=== PATIENT | female | born 1960 | race Caucasian/White ===

== ENCOUNTER → 2022-05-23 08:39 | Outpatient (CLI) | payer OTHER, SELFPAY ==
--- NOTE | ~2022-05-23 | MR_ITS ---
EXAMINATION: MR pelvis wo con DATE: 05/23/2022 10:07 INDICATION: Bilateral hip pain. TECHNIQUE: Magnetic resonance imaging (MRI) of the pelvis was performed without intravenous contrast. COMPARISON: None. FINDINGS: There is lumbar levocurvature and mild spondylosis. No fracture. There is mild osteoarthritis of the hips. The hamstring origins are normal. The iliopsoas tendons are normal. There is mild right gluteus minimus tendinopathy. There is a partial tear of left gluteus minimus tendon. The gluteus medius ten dons are normal. There is moderate bilateral trochanteric bursitis. There is mild fatty atrophy of th e gluteus minimus muscle bellies bilaterally. IMPRESSION: 1. Mild osteoarthritis of the hips. 2. Partial tear of left gluteus minimus tendon. 3. Moderate bilateral trochanteric bursitis. Reviewed, dictated and finalized at location A.
== END ==
PROVIDERS: PCP Family Medicine; Visit Provider Orthopaedic Surgery
DX: M25.551 Pain in right hip (principal); M25.552 Pain in left hip; M16.0 Bilateral primary osteoarthritis of hip; S76.012A Strain of muscle, fascia and tendon of left hip, initial encounter; M71.552 Other bursitis, not elsewhere classified, left hip; M71.551 Other bursitis, not elsewhere classified, right hip
CPT/HCPCS: 72195